=== PATIENT | male | born 1945 | race Caucasian/White ===

== ENCOUNTER 2019-03-28 10:26 | Emergency (ER) | payer MEDICARE ==
[~2019-03-28] VITALS: Ht 167.6 cm; Wt 120.5 kg
[2019-03-28 10:42] VITALS: BP 134/56; Ht 167.6 cm; Wt 120.5 kg
[2019-03-28] MEDS ORDERED: WATER PILL? (10:43)
[2019-03-28] MEDS ORDERED: [UNRECOGNIZED DRUG - REMARK] (10:44)
== END 2019-03-28 11:45 | disposition home or self-care (01) ==
LOC: D.ER 10:26
DX: K42.9 Umbilical hernia without obstruction or gangrene (principal)

== ENCOUNTER 2019-05-12 06:50 | Day surgery (SDC) | payer MEDICARE ==
[~2019-05-12] VITALS: Ht 167.6 cm; Wt 122.9 kg
[~2019-05-12 06:50] MED LIST: WATER PILL?; [UNRECOGNIZED DRUG - REMARK]
[2019-05-12 07:14] LABS: HEMATOCRIT 41.3 % (42.0-54.0); HEMOGLOBIN 13.6 g/dL (13.5-17.5); MCH 27.6 pg (26.0-34.0); MCHC 32.9 g/dL (31.0-37.0); MCV 83.9 fL (80.0-100.0); MEAN PLATELET VOLUME 9.7 fL (7.4-10.4); RBC 4.92 10x6/uL (4.20-6.10); RDW 13.7 % (11.5-14.5); WBC 7.7 10x3/uL (4.8-10.8)
[2019-05-12 07:28] LABS: CALC OSMOLALITY 280 mosm/kg (275-300); CALCIUM 9.4 mg/dL (8.5-10.1); CARBON DIOXIDE 29.4 mmol/L (21.0-32.0); CHLORIDE - SERUM 105 mmol/L (98-107); GLUCOSE 117 mg/dL (74-106); POTASSIUM - SERUM 4.1 mmol/L (3.5-5.1); SODIUM 140 mmol/L (136-145); UREA NITROGEN 14 mg/dL (7-18); eGFR NON AFRICAN AMERICAN 78 mL/min (90-120)
[2019-05-12] MEDS ORDERED: ALDACTONE25 MG PO (07:35)
[2019-05-12] MEDS ORDERED: CRESTOR40 MG PO (07:36)
[2019-05-12] MEDS ORDERED: COREG 3.1253.125 MG PO (07:36)
[2019-05-12] MEDS ORDERED: ASPIRIN81 MG PO (07:38)
[2019-05-12] MEDS ORDERED: TIMOPTIC 0.5 % O5 ML EACH EYE (07:39)
[2019-05-12] MEDS ORDERED: XALATAN 0.0052.5 ML EACH EYE (07:40)
[2019-05-12 07:47] VITALS: BP 122/47; Ht 167.6 cm; Wt 122.9 kg
--- NOTE | 2019-05-12 09:21 | NUR ---
PT ROUNDED ON AT THIS TIME. PT UPDATED ON PLAN OF CARE, AND VERBALIZES UNDERSTANDING. PT STATES NO OTHER NEEDS AT THIS TIME, PT RESTING COMFOTABLE NAD NOTED.
[2019-05-12] MEDS ORDERED: HYDROCODON-ACE1 EAC7 PO (11:56)
--- NOTE | 2019-05-12 14:45 | NUR ---
DC INSTRUCTIONS GIVEN TO PT. STATES UNDERSTANDING. PT ABLE TO EAT PUDDING AND DRINK WATER.
--- NOTE | 2019-05-12 15:54 | NUR ---
PT IS AWAKE BUT DROWSY AT TIMES. HELPED PT TO THE BATHROOM. DID NOT VOID. HELPED PT BACK TO BED. WILL CONTINUE TO MONITOR.
--- NOTE | 2019-05-12 16:54 | NUR ---
PT IN BED DRINKING COFFEE.
--- NOTE | 2019-05-12 17:19 | NUR ---
PT VOIDED. DC'D IV CATH FULLY INTACT.
== END 2019-05-12 17:40 | disposition home or self-care (01) ==
LOC: D.OPS 06:50
PROVIDERS: Anesthesiology; ATTEND Surgery
DX: K43.9 Ventral hernia without obstruction or gangrene (principal); I25.10 Atherosclerotic heart disease of native coronary artery without angina pectoris; E66.01 Morbid (severe) obesity due to excess calories

== ENCOUNTER → 2020-05-05 08:08 | Outpatient (CLI) | payer MEDICARE ==
[2019-05-12 07:47] VITALS: BMI 43.8
[~2020-05-05 08:08] MED LIST changes: +ALDACTONE25 MG PO; +ASPIRIN81 MG PO; +COREG 3.1253.125 MG PO; +CRESTOR40 MG PO; +HYDROCODON-ACE1 EAC7 PO; +TIMOPTIC 0.5 % O5 ML EACH EYE; +XALATAN 0.0052.5 ML EACH EYE
== END | disposition home or self-care (01) ==
LOC: D.HCCECHO 08:08
PROVIDERS: ATTEND Internal Medicine Cardiovascular Disease
DX: R06.09 Other forms of dyspnea (principal); I35.1 Nonrheumatic aortic (valve) insufficiency

== ENCOUNTER 2020-06-01 07:00 | Day surgery (SDC) | payer MEDICARE ==
[~2020-06-01] VITALS: Ht 167.6 cm; Wt 120.5 kg
--- NOTE | ~2020-06-01 | HEMODYNAMI ---
PATIENT:INGRID JENNINGS MEDICAL RECORD: [id number] : 43 LOCATION:D.CAT ADMISSION DATE: 06/01/20 Generatedon:06/01/202010:06 Patient name: INGRID JENNINGS Patient #: [id number] : 1945 Date of study: 06/01/2020 Page: Of Hemodynamic Procedure Report Patient Data Patient Demographics Procedure consent was obtained First Name: INGRID Gender: Male Last Name: MICHAELA : 1945 Patient #: [id number] Age: 74 year(s) Race: SSN: [id number] Additional ID: [id number] Contact details [address]: [address] [place] [address] State: [place] City: [place] Zip code: [address] Past Medical History Allergies: No known allergies Admission Admission Data Admission Date: 06/01/2020 Admission Time: 7:00 Arrival Date: 06/01/2020 Arrival Time: 0:00 Admit Source: Other Insurance Payor: Private health insurance [facility] #: [id number] Height (in.): 65.75 BSA: 2.25 (m2) Height (cm.): 167 BMI: 43.03 (kg/m2) Weight (lbs.): 264.56 Weight (kg.): 120 Lab Results Lab Result Date: 06/01/2020 Lab Result Time: 0:00 Biochemistry Name Units Result Min Max BUN mg/dl 12 --(-*--)-- 7 18 Creatinine mg/dl 1 --(--*-)-- 0.6 1.3 eGFR ml/min 76.44379 *-(----)-- 90 120 NONAFRICAN CBC Name Units Result Min Max Hemoglobin g/dl 5.15 *-(----)-- 13.5 17.5 Procedure Procedure Types Cath Procedure Diagnostic Procedure LHC LHC w/Coronaries w/Grafts Aortic Root Angiography Sedation Charges Moderate Sedation 40-54 minutes Procedure Description Procedure Date Procedure Date: 06/01/2020 Procedure Start Time: 9:22 Procedure End Time: 10:05 Procedure Staff Name Function Jourdan Richards MD Performing Physician Pamella Zhu RT Monitor Tonya Alexis RT Scrub Kvng August RN Nurse Rajinder Reyes RT Senior Software Manager Procedure Data Cath Procedure Fluoroscopy Diagnostic fluoroscopy Total fluoroscopy Time: time: 11.7 min 11.7 min Diagnostic fluoroscopy Total fluoroscopy dose: dose: 2099 mGy 2099 mGy Contrast Material Contrast Material Type Amount (ml) Isovue 300 177 Entry Location Entry Primary Successful Side Size Upsize Upsize Entry Closure Bruce ccessful Closure Location (Fr) 1 (Fr) 2 (Fr) Remarks Device Remarks Femoral Right 5 Fr Manual vein Compression Femoral Right 5 Fr Exoseal artery Estimated blood loss: 10 ml Diagnostic catheters Device Type Used For End Catheter Placement MULTIPACK JL 4.0 5Fr Procedure catheter DIAGNOSTIC JL 5 5Fr Left Coronary catheter ([id number]) Angiography DIAGNOSTIC AR MOD 5Fr Procedure Catheter ([id number]) DIAGNOSTIC LCB 5Fr Procedure catheter ([id number]) DIAGNOSTIC IMT 5Fr Procedure Catheter ([id number]) MULTIPACK Pigtail 5 Fr Aortic Root catheter Angiography DIAGNOSTIC AR MOD 5Fr Procedure Catheter (463061S) DIAGNOSTIC AR2 MOD 5 Fr Procedure catheter ([id number]) Procedure Complications No complications Procedure Medications Medication Administration Route Dosage 0.9% NaCl I.V. 100 ml/hr Oxygen etCO2 Nasal cannula 2 l/min Heparin Flush Bag added to field 2 bags (1000units/500ml NS) Lidocaine 2% added to field 20 Versed I.V. 1 mg Fentanyl I.V. 50 mcg Versed I.V. 1 mg Fentanyl I.V. 50 mcg Hemodynamics Rest BSA: 2.25 (m2) HGB: 5.15 (g/dl) O2 Consumption: Estimated: 253.57 (ml/min) O2 Co nsumption indexed: Estimated:112.7 (ml/min/m) Heart Rate: 64 (bpm) Pressure Samples Time Site Value (mmHg) Purpose Heart Use Rate(bpm) 9:56 LV 149/5,28 Snapshot 68 9:56 AO 138/60(91) Pullback 67 9:56 LV 151/5,28 Pullback 67 Gradients Valve Time Site 1 Site 2 Mean SEP/DFP Peak To Heart Use (mmHg) (sec/min) Peak Rate (mmHg) (bpm) Aortic 9:56 LV AO 20 20 13 67 151/5,28 138/60(91) Calculations Valve P-P Mean Valve Index Valve Source Name Gradient Area Flow (cm2) Aortic 13 20 13 20 Snapshots Pre Cath Intra NCS Post Cath Vital Signs Time Heart Resp SPO2 etCO2 NIBP (mmHg) Rhythm Pain Sedation Rate (ipm) (%) (mmHg) Status Level (bpm) 9:05:29 64 17 100 18 119/64(96) NSR 0 (11) 10(A) , No pain 9:09:56 67 13 96 0.7 120/60(98) NSR 0 (11) 10(A) , No pain 9:14:20 68 12 94 34.5 116/60(95) NSR 0 (11) 10(A) , No pain 9:18:46 65 25 96 1.5 113/62(82) NSR 0 (11) 10(A) , No pain 9:23:10 66 30 95 30 120/59(93) NSR 0 (11) 10(A) , No pain 9:27:32 60 14 97 48 122/62(81) NSR 0 (11) 10(A) , No pain 9:31:59 67 21 97 45 110/65(82) NSR 0 (11) 9(A) , No pain 9:37:22 69 20 98 12.7 125/68(98) NSR 0 (11) 9(A) , No pain 9:41:49 68 14 96 27.7 103/62(92) NSR 0 (11) 9(A) , No pain 9:46:07 69 14 98 25.5 113/63(86) NSR 0 (11) 9(A) , No pain 9:50:31 64 12 98 21.8 121/59(89) NSR 0 (11) 9(A) , No pain 9:54:55 64 13 98 27 125/64(89) NSR 0 (11) 9(A) , No pain 9:59:21 65 17 100 15 145/70(106) NSR 0 (11) 9(A) , No pain 10:03:50 68 13 99 24 121/64(85) NSR 0 (11) 9(A) , No pain Medications Time Medication Route Dose Verified Delivered Reason Notes Effe ctiveness by by 9:07:16 0.9% NaCl I.V. 100 Kvng Kvng Per ml/hr Mata August physician RN RN 9:07:25 Oxygen etCO2 2 Kvng Kvng for low 02 Nasal l/min Lorigan Lorigan sats cannula RN RN 9:07:36 Heparin Flush added 2 Kvng Kvng used for Bag to bags Lorigan Lorigan procedure (1000units/500ml field RN RN NS) 9:07:49 Lidocaine 2% added 20ml Kvng Kvng for local to vial Lorigan Lorigan anesthetic field RN RN 9:16:39 Versed I.V. 1 mg Kvng Kvng for Lorigan Lorigan sedation RN RN 9:16:47 Fentanyl I.V. 50 Kvng Kvng for mcg Lorigan Lorigan sedation RN RN 9:23:04 Versed I.V. 1 mg Kvng Kvng for Lorigan Lorigan sedation RN RN 9:23:09 Fentanyl I.V. 50 Kvng Kvng for mcg Lorigan Lorigan sedation RN spice miller Log Time Note 8:46:53 Informed consent obtained and on chart 8:48:26 Admit Source: Other 8:48:33 Insurance Payor : Private health insurance 8:49:32 Patient Height : 65.75 inches 8:49:34 Patient Weight : 264.56 lbs 8:50:37 Procedure Status Elective Heart Cath (OP). 8:50:38 Time tracking: Regular hours (M-F 7:00 - 5:00) 8:50:41 Plan of Care:Hemodynamics will remain stable., Cardiac rhythm will remain stable., Comfort level will be maintained., Respiratory function will remain adequate., Patient/ family verbilizes understanding of procedure., Procedure tolerated without complication., Recovers from procedure without complications.. 8:50:50 H&P Date Dictated: 06/01/2020 Within 30 days and on chart., H&P Addendum completed by physician on day of procedure. (MUST COMPLETE FOR ALL OUTPATIENTS). 8:50:53 Family in waiting room. 8:50:54 Patient NPO since Midnight. 8:51:05 Patient allergic to No known allergies 8:51:41 Kvng August RN sent for patient. Start room use. 8:53:36 Patient received from Pre/Post Procedure Room to CCL 1 Alert and oriented. Tansferred to table in Supine position. 8:53:38 Warm blankets applied, and rafiq hugger turned on for patient comfort. 8:53:38 Correct patient and procedure confirmed by team. 8:53:40 ECG and BP/O2 sat monitors applied to patient. 9:04:05 Vital chart was started 9:04:06 Baseline sample Acquired. 9:04:09 Full Disclosure recording started 9:04:18 Pre-procedure instructions explained to patient. 9:04:26 Was the patient premedicated? Yes 9:04:28 Is patient on blood thinner?No 9:04:30 Patient diabetic? No. 9:04:34 Snore? Yes 9:04:36 Sleep apnea? No 9:04:41 Dentures? No ? 9:04:49 Patient pain scale 0/10 ?. 9:04:58 IV patent on arrival in left forearm with 0.9% NaCl at O. 9:05:33 Lab Result : BUN 12 mg/dl 9:05:33 Lab Result : eGFR NONAFRICAN 76.83149 ml/min 9:05:33 Lab Result : Creatinine 1 mg/dl 9:05:33 Lab Result : Hemoglobin 5.15 g/dl 9:06:15 Lab results completed and on chart. 9:07:16 0.9% NaCl 100 ml/hr I.V. was administered by Kvng August RN; Per physician; Verbal order read back and verified. 9:07:25 Oxygen 2 l/min etCO2 Nasal cannula was administered by Kvng August RN; for low 02 sats; Verbal order read back and verified. 9:07:36 Heparin Flush Bag (1000units/500ml NS) 2 bags added to field was administered by Kvng August RN; used for procedure; Verbal order read back and verified. 9:07:41 Stress Test: yes; abnormal INFERIOR, APICAL 9:07:47 Right groin area was prepped with chlora-prep and draped in sterile fashion 9:07:49 Lidocaine 2% 20ml vial added to field was administered by Kvng August RN; for local anesthetic; Verbal order read back and verified. 9:08:00 Use device set Femoral Dx 9:08:02 ACIST Syringe (81733) opened to sterile field. 9:08:02 Bag Decanter (2001S) opened to sterile field. 9:08:03 Medline Cath Pack ([id number]) opened to sterile field. 9:08:04 ACIST Hand Control (89917) opened to sterile field. 9:08:04 ACIST Manifold (90526) opened to sterile field. 9:08:05 DIAGNOSTIC Multipack 5Fr catheter set ([id number]) opened to sterile field. 9:08:06 Tegaderm 4 x 4 (1626W) opened to sterile field. 9:08:07 SHEATH 5FR [place] (QYB130) opened to sterile field. 9:08:08 EMERALD Guide Wire (047-565) opened to sterile field. 9:09:34 Arrival Date: 06/01/2020 12:00:00 AM 9:10:33 Procedure type changed to Cath procedure, Diagnostic procedure, LHC, LHC w/Coronaries w/Grafts, Aortic Root Angiography, Sedation Charges, Moderate Sedation 40-54 minutes 9:14:55 Zero performed for pressure channel P1 9:14:58 Zero performed for pressure channel P1 9:15:05 Zero performed for pressure channel P1 9:15:35 Physician arrived 9:15:37 --------ALL STOP TIME OUT------ 9:15:37 Final Timeout: patient, procedure, and site verified with staff and physician. All members of the team are in agreement. 9:15:40 Right groin site verified by team. 9:15:45 Fire Safety Assessment: A--An alcohol-based skin anteseptic being used preoperatively., C--Open oxygen or nitrous oxide is being used., D--An ESU, laser, or fiber-optic light is being used. 9:15:52 Physical assessment completed. ASA score P 3 - A patient with severe systemic disease as per Jourdan Richards MD. 9:15:56 2) 60-89 Mildly reduced kidney function, and other findings (as for stage 1) point to kidney disease. 9:16:11 Sedation plan: IV Moderate Sedation Medication:Versed, Fentanyl 9:16:39 Versed 1 mg I.V. was administered by Kvng August RN; for sedation; Verbal order read back and verified. 9:16:47 Fentanyl 50 mcg I.V. was administered by Kvng Lorigan RN; for sedation; Verbal order read back and verified. 9:21:26 Procedure started. 9:22:57 Local anesthetic to right femoral artery with Lidocaine 2% by Jourdan Richards MD.INITIAL ACCESS ONLY 9:23:04 Versed 1 mg I.V. was administered by Kvng August RN; for sedation; Verbal order read back and verified. 9:23:09 Fentanyl 50 mcg I.V. was administered by Kvng August RN; for sedation; Verbal order read back and verified. 9:23:49 Baseline sample Acquired. 9::52 Baseline sample Acquired. 9::59 Baseline sample Acquired. 9::02 A 5 Fr sheath was inserted into the Right Femoral vein 9::59 A 5 Fr sheath was inserted into the Right Femoral artery 9:28:13 A MULTIPACK JL 4.0 5Fr catheter was advanced over the wire and used for Procedure. 9:30:02 Catheter removed. 9:31:06 A DIAGNOSTIC JL 5 5Fr catheter ([id number]) was advanced over the wire and used for Left Coronary Angiography. 9:31:16 LCA angiography performed. 9:34:53 Catheter removed. 9:35:35 A DIAGNOSTIC AR MOD 5Fr Catheter ([id number]) was advanced over the wire and used for Procedure. 9:35:55 SVG to RCA angiography performed. 9:36:04 RCA angiography performed. 9:36:51 SVG to Circ angiography performed. 9:38:56 Catheter removed. 9:41:45 A DIAGNOSTIC LCB 5Fr catheter ([id number]) was advanced over the wire and used for Procedure. 9:41:53 SVG to Circ angiography performed. 9:41:55 Catheter removed. 9:42:41 UNABLE TO CANNULATE THE OTHER VEIN GRAFT LCB REMOVED 9:42:51 A DIAGNOSTIC IMT 5Fr Catheter ([id number]) was advanced over the wire and used for Procedure. 9:43:51 [place]DRAGON NOT USED 9:43:56 Catheter removed. 9:46:19 A MULTIPACK Pigtail 5 Fr catheter was advanced over the wire and used for Aortic Root Angiography. 9:46:58 Aortic Root visualized 9:47:31 Catheter removed. 9:48:28 A DIAGNOSTIC AR MOD 5Fr Catheter ([id number]) was advanced over the wire and used for Procedure. 9:52:35 UNABLE TO CANNULATE SVG 9:52:38 Catheter removed. 9:53:45 A DIAGNOSTIC AR2 MOD 5 Fr catheter ([id number]) was advanced over the wire and used for Procedure. 9:53:58 SVG to LAD angiography performed. 9:54:26 EXOSEAL 5Fr (EX500) opened to sterile field. 9:56:52 LV hemodynamics recorded. 9:58:11 Catheter removed. 9:58:35 Sheath removed intact; hemostasis achieved with Exoseal to the Right Femoral artery. 9:58:41 Procedure ended.(Physican Out) 9:58:54 Fluoroscopy time 11.70 minutes. 9:58:59 Flurop Dose total: 2098 9:58:59 Fluoroscopy dose: 2099 mGy 9:59:10 Dose Area Product 17109 mGy/cm. 9:59:16 Contrast amount:Isovue 300 177ml. 9:59:18 Maximum allowable dose exceeded? No. 9:59:21 Insertion/operative site no bleeding no hematoma. 9:59:40 Sheath removed intact; hemostasis achieved with Manual Compression to the Right Femoral vein. 9:59:52 Post-op/insertion site Right Femoral artery dressed using a 4 x 4 and Tegaderm. 10:00:40 Post right femoral artery:stable 10:00:50 Post Procedure Pulses reassessed and unchanged 10:00:55 Post-procedure physical assessment completed. ASA score P 2 - A patient with mild systemic disease as per Jourdan Richards MD. 10:01:04 Post procedure rhythm: sinus rhythm 10:01:07 Estimated blood loss: 10 ml 10:01:12 Post procedure instruction explained to patient.Patient verbalizes understanding. 10:02:37 Procedure and supply charges have been captured, reviewed, submitted and are correct. 10:04:55 Procedure Complication : No complications 10:04:58 Vital chart was stopped 10:05:01 [facility] Findings: mild to moderate CAD (<70%) 10:05:09 Operative report dictated upon procedure completion. 10:05:10 See physician's report for complete and final results. 10:05:12 Report given to Pre/Post Procedure Room. 10:05:15 Patient transfered to Pre/Post Procedure Room with Stretcher. 10:05:18 Procedure ended. 10:05:18 Full Disclosure recording stopped 10:05:26 End room use (Document Last) 10:05:46 End room use (Document Last) 10:06:12 End room use (Document Last) Device Usage Item Name Manufacture Quantity Catalog Number Hospital Part Current Minim al Lot# / Charge Number Stock Stock Serial# Code ACIST Acist 1 80038 064802 597782 [id number] 20 Syringe Medical (00592) Systems Inc Bag Microtek 1 2001S 710454 10605 264010 5 Decanter Medical Inc. () Medline Medline 1 [id number] 107876 00546 265274 5 Cath Pack ([id number]) ACIST Hand Acist 1 97168 486298 627708 976529 5 Control Medical (78425) Systems Inc ACIST Acist 1 89073 276222 844812 095410 5 Manifold Medical (53132) Systems Inc DIAGNOSTIC Cardinal 1 [id number] 067516 38552 750000 30 Multipack Health 5Fr catheter set (AG8429) Tegaderm 4 3M 1 1626W 778386 589454 494284 5 x 4 (1626W) SHEATH 5FR [place] 1 [id number] 809768 435883 437924 5 [place] (OJY600) EMERALD Cardinal 1 502-455 240532 102138 134269 5 Guide Wire Health (502455) MULTIPACK Cardinal 1 566869 5 JL 4.0 5Fr Health catheter DIAGNOSTIC Cardinal 1 [id number] 360081 878874 151110 5 JL 5 5Fr Health catheter (261534S) DIAGNOSTIC Cardinal 1 [id number] 645754 371283 599782 15 AR MOD 5Fr Health Catheter (511893S) DIAGNOSTIC Cardinal 1 [id number] 625078 209063 127932 5 LCB 5Fr Health catheter (812925B) DIAGNOSTIC [place] 1 [id number] 130116 697276 37941 5 IMT 5Fr Scientific Catheter ([id number]) MULTIPACK Cardinal 1 154981 5 Pigtail 5 Health Fr catheter DIAGNOSTIC Cardinal 1 825875S 781400 362543 087515 20 AR2 MOD 5 Health Fr catheter (298177A) EXOSEAL 5Fr Cardinal 1 EX500 343552 254743 541177 10 (EX500) Health Signature Audit [place] Stage Time Signature Unsigned Intra-Procedure 06/01/2020 Pamella Zhu 10:05:46 AM RT(R) Intra-Procedure 06/01/2020 Kvng 10:06:12 AM Mata CHAPPELL Intra-Procedure 06/01/2020 Jourdan Richards MD 10:06:52 AM [address] [id number] [place] [address]
[2020-06-01 08:10] VITALS: BP 130/58; Ht 167.6 cm; Wt 120.5 kg
[2020-06-01 08:55] LABS: ALT (SGPT) 33 U/L (10-68); BASOPHILS 0.4 % (0-2); CALC OSMOLALITY 276 mosm/kg (275-300); CALCIUM 9.2 mg/dL (8.5-10.1); CARBON DIOXIDE 27.6 mmol/L (21.0-32.0); CHLORIDE - SERUM 105 mmol/L (98-107); CHOL - HDL RATIO 5.7 ratio (2.3-4.9); CHOLESTEROL, TOTAL 176 mg/dL (0-200); EOSINOPHILS 3.3 % (0-7); GLUCOSE 108 mg/dL (74-106); HDL CHOLESTEROL 31 mg/dL (32-96); HEMOGLOBIN 13.8 g/dL (13.5-17.5); IMMATURE GRANULOCYTES 0.2 % (0-5); LDL CHOLESTEROL 122 mg/dL (0-100); LDL-HDL RATIO 3.9 ratio (1.5-3.5); LYMPHOCYTES 22.9 % (15-50); MCH 26.8 pg (26.0-34.0); MCHC 32.1 g/dL (31.0-37.0); MCV 83.5 fL (80.0-100.0); MEAN PLATELET VOLUME 9.5 fL (7.4-10.4); MONOCYTES 8.1 % (2-11); NEUTROPHILS 65.1 % (40-80); PLATELET COUNT 174 10x3/uL (130-400); POTASSIUM - SERUM 4.1 mmol/L (3.5-5.1); RBC 5.15 10x6/uL (4.20-6.10); RDW 14.4 % (11.5-14.5); SODIUM 138 mmol/L (136-145); TRIGLYCERIDE 116 mg/dL (30-200); UREA NITROGEN 12 mg/dL (7-18); WBC 8.3 10x3/uL (4.8-10.8); eGFR NON AFRICAN AMERICAN 77 mL/min (90-120)
--- NOTE | 2020-06-01 10:17 | NUR ---
PT ARRIVED BY STRETCHER. PLACED ON MONITORS. ASSESSMENT COMPLETED. VSS AT THIS TIME. CALL LIGHT WITHIN REACH.
--- NOTE | 2020-06-01 10:30 | NUR ---
RIGHT GROIN DRESSING C/D/I. NO S/S OF HEMATOMA NOTED. CALL LIGHT WITHIN REACH. VSS AT THIS TIME.
--- NOTE | 2020-06-01 11:00 | NUR ---
RIGHT GROIN DRESSING C/D/I. NO S/S OF HEMATOMA NOTED. CALL LIGHT WITHIN REACH. VSS AT THIS TIME. RESTING COMFORTABLY.
--- NOTE | 2020-06-01 11:30 | NUR ---
RIGHT GROIN DRESSING C/D/I. NO S/S OF HEMATOMA NOTED. HEAD OF BED INC TO 30 DEGREES. TOLERATED WELL. SET UP WITH SANDWICH TRAY AND DRINK.
--- NOTE | 2020-06-01 12:15 | NUR ---
RIGHT GROIN DRESSING C/D/I. NO S/S OF HEMATOMA NOTED. CALL LIGHT WITHIN REACH. VSS AT THIS TIME. PIV D/C'D WITH CATH TIP INTACT. TOLERATED WELL. PT INSTRUCTED TO GET UP AND DRESSED AT THIS TIME.
--- NOTE | 2020-06-01 12:20 | NUR ---
PT AMBULATED TO RESTROOM. VOIDED WITHOUT DIFFICULTY. STEADY GAIT NOTED. DISCUSSED DISCHARGE INSTRUCTIONS WITH PT. HE VOICED UNDERSTANDING.
--- NOTE | 2020-06-01 12:30 | NUR ---
PT REFUSED WHEELCHAIR. AMBULATED WITH PT TO VEHICLE. NO S/S OF DISTRESS NOTED. ALL BELONGINGS AND PAPERWORK IN HAND. STEADY GAIT NOTED.
== END 2020-06-01 12:30 | disposition home or self-care (01) ==
LOC: D.CATH 07:00
PROVIDERS: ATTEND Internal Medicine Cardiovascular Disease
DX: R06.09 Other forms of dyspnea (principal); R94.39 Abnormal result of other cardiovascular function study; E78.00 Pure hypercholesterolemia, unspecified; I35.8 Other nonrheumatic aortic valve disorders; I25.10 Atherosclerotic heart disease of native coronary artery without angina pectoris